=== PATIENT | female | born 1990 ===

== ENCOUNTER 2018-10-10 12:14 | Day surgery (SDC) | payer OTHER | END 2018-10-10 16:40 | disposition home or self-care (01) | LOC: AMB-ENDOS 12:14 | DX: K59.09 Other constipation (principal); K64.1 Second degree hemorrhoids ==

== ENCOUNTER 2020-04-14 13:38 | Outpatient (CLI) | payer OTHER | END 2020-04-14 13:47 | disposition home or self-care (01) | LOC: RAD 13:38 | DX: M25.512 Pain in left shoulder (principal) ==